=== PATIENT | female | born 1985 | race Caucasian/White ===

== ENCOUNTER 2018-11-13 11:10 | Inpatient (IN) | payer OTHER ==
[~2018-11-13] VITALS: Ht 158 cm; Wt 68.0 kg
[2018-11-13 12:37] LABS: BASOPHILS % (AUTO) 0.3 % (0.0-2.0); EOSINOPHILS % (AUTO) 0.4 % (1.0-6.0); HEMATOCRIT 35.4 % (36-46); LYMPHOCYTES # (AUTO) 2.1 K/uL (1.0-4.8); LYMPHOCYTES % (AUTO) 22.1 % (22.0-44.0); MEAN CORPUSCULAR HEMOGLOBIN 29.9 pg (26.0-34.0); MEAN CORPUSCULAR HGB CONC 33.8 G/dL (31.0-37.0); MEAN CORPUSCULAR VOLUME 88 fL (80-100); MONOCYTES # (AUTO) 0.7 K/uL (0.1-1.0); NEUTROPHILS # (AUTO) 6.5 K/uL (1.8-7.7); NEUTROPHILS % (AUTO) 70.2 % (40.0-70.0); PLATELET COUNT (AUTO)-OB 196 K/uL (150-450); RED BLOOD CELL COUNT(AUTO) 4.01 MIL/uL (4.00-5.20); RED CELL DISTRIBUTION WIDTH 15.4 % (11.5-14.5)
[2018-11-13 12:47] LABS: ANION GAP 12 mmol/L (8-16); CALCIUM, TOTAL 8.5 mg/dL (8.8-10.5); CARBON DIOXIDE 19 mmol/L (22-29); CHLORIDE 106 mmol/L (98-107); GLOMERULAR FILTR. RATE CALC > 60 mL/min (>60); GLUCOSE,RANDOM 74 mg/dL (70-110); POTASSIUM 4.5 mmol/L (3.5-5.1); SODIUM SERUM 137 mmol/L (136-145); UREA NITROGEN, BLOOD 16 mg/dL (7-18)
[2018-11-13 12:50] LABS: ALANINE AMINOTRANSFERASE 37 U/L (12-78); ALBUMIN 2.1 g/dL (3.4-5.0); ALKALINE PHOSPHATASE 290 U/L (46-116); ASPARTATE AMINOTRANSFERASE 26 U/L (15-37); BILIRUBIN,TOTAL 0.2 mg/dL (0.1-1.0)
[2018-11-13] MEDS ORDERED: RINGERS SOLUTION,LACTATED 1,000 ML IV PRN (13:47)
[2018-11-13] MEDS ORDERED: METHYLERGONOVINE MALEATE 0.2 MG/ML VIAL IM PRN (14:00)
[2018-11-13] MEDS ORDERED: CITRIC ACID/SODIUM CITRATE 30 ML SOLUTION UDCUP PO PRN (14:00)
[2018-11-13] MEDS ORDERED: LIDOCAINE/PF 1% 30 ML VIAL INJ PRN (14:00)
[2018-11-13] MEDS ORDERED: METOCLOPRAMIDE HCL 5 MG/ML 2 ML VIAL IVP PRN (14:00)
[2018-11-13] MEDS ORDERED: CARBOPROST TROMETHAMINE 250 MCG/ML AMP IM PRN (14:00)
[2018-11-13 15:27] LABS: APPEARANCE,URINE CLEAR (CLEAR); BILIRUBIN,URINE NEGATIVE (NEGATIVE); GLUCOSE, URINE (UA) NEGATIVE (NEGATIVE); KETONES,URINE NEGATIVE (NEGATIVE); LEUKOCYTE ESTERASE ,URINE NEGATIVE (NEGATIVE); NITRATE,URINE NEGATIVE (NEGATIVE); OCCULT BLOOD,URINE NEGATIVE (NEGATIVE); PH,URINE 5.5 (5.0-8.0); PROTEIN,URINE SEE CONFIRM (NEGATIVE); UROBILINOGEN,URINE 0.2 mg/dL (<=1.0)
[2018-11-13 15:57] LABS: SULFOSALICYLIC ACID,URINE 4+ (Negative)
[2018-11-13 15:58] LABS: BACTERIA,URINE Moderate /HPF (None Seen); RBC,URINE None Seen /HPF (0-2)
[2018-11-13 16:01] LABS: COARSE GRANULAR CASTS,URINE 0-2 /LPF (None Seen); MUCUS,URINE Few LPF (None Seen); SQUAMOUS EPITHELIAL CELL,UR Few /LPF (None Seen)
[2018-11-13] MEDS: MISOPROSTOL 25 MCG TABLET PO SCH ×2 (17:06→21:15)
[2018-11-13] MEDS ORDERED: NIFE10CA PO (17:49)
[2018-11-13] MEDS ORDERED: PREN1TAB80 PO (17:50)
[2018-11-13 17:53] VITALS: BP 135/85
[2018-11-13] MEDS ORDERED: BETAMETHASONE SOLUSPAN 6 MG/ML 5 ML VIAL IM ONE (18:00)
[2018-11-13] MEDS ORDERED: OXYGEN THERAPY IH SCH (20:00)
[2018-11-13] MEDS ORDERED: OXYTOCIN 30 UNITS/LACT RINGERS 500 ML IV PRN (21:50)
[2018-11-13] MEDS: RINGERS SOLUTION,LACTATED 1,000 ML IV SCH (23:39)
[2018-11-14] MEDS: MISOPROSTOL 25 MCG TABLET PO SCH ×2 (01:09→04:58)
[2018-11-14] MEDS ORDERED: BETAMETHASONE SOLUSPAN 6 MG/ML 5 ML VIAL IM ONE (07:25)
[2018-11-14] MEDS: RINGERS SOLUTION,LACTATED 1,000 ML IV SCH (07:32)
[2018-11-14] MEDS ORDERED: ACETAMINOPHEN 1000 MG/ISO-OSM 100 ML IV ONE (09:51)
[2018-11-14] MEDS ORDERED: BUPIVACAINE HCL/DEX-WATER/PF 0.75% 2 ML AMP ONE (09:55)
[2018-11-14] MEDS ORDERED: DiphenhydrAMINE HCL 50 MG/ML VIAL IVP PRN (11:00)
[2018-11-14] MEDS ORDERED: FentaNYL CITRATE-PF 100 MCG/2 ML VIAL IVP PRN ×2 (11:00)
[2018-11-14] MEDS ORDERED: NALOXONE HCL 0.4 MG/ML VIAL IVP PRN (11:00)
[2018-11-14] MEDS ORDERED: MEPERIDINE-PF 25 MG/ML VIAL IVP PRN (11:00)
[2018-11-14] MEDS ORDERED: HYDROmorphone 2 MG/ML SYRINGE IVP PRN ×2 (11:00)
[2018-11-14] MEDS ORDERED: ONDANSETRON HCL 4 MG/2 ML VIAL IVP PRN (11:00)
[2018-11-14] MEDS ORDERED: RINGERS SOLUTION,LACTATED 1,000 ML IV ONE (11:05)
[2018-11-14] MEDS ORDERED: METHYLERGONOVINE MALEATE 0.2 MG/ML VIAL ONE (11:05)
[2018-11-14] MEDS ORDERED: NIFE30TA5 PO (11:07)
[2018-11-14] MEDS ORDERED: ACETAMINOPHEN/CODEINE 300-30 MG TABLET PO PRN ×2 (11:30)
[2018-11-14] MEDS ORDERED: LANOLIN 7 GM OINTMENT TP PRN (11:30)
[2018-11-14] MEDS ORDERED: PHENYLEPHRINE HCL 10 MG/ML VIAL IVP ONE (12:00)
[2018-11-14] MEDS ORDERED: ONDANSETRON HCL 4 MG/2 ML VIAL IVP ONE (12:00)
[2018-11-14] MEDS ORDERED: MORPHINE SULFATE/PF 0.5 MG/ML 10 ML AMP IVP ONE (12:00)
[2018-11-14] MEDS ORDERED: FentaNYL CITRATE-PF 100 MCG/2 ML VIAL IVP ONE (12:00)
[2018-11-14] MEDS ORDERED: OXYTOCIN 10 UNITS/ML VIAL IM ONE (12:00)
[2018-11-14] MEDS ORDERED: 0.9% SODIUM CHLORIDE 10 ML VIAL IVP ONE (12:00)
[2018-11-14] MEDS ORDERED: EPHEDrine SULFATE 50 MG/ML VIAL IM ONE (12:00)
[2018-11-14] MEDS: ACETAMINOPHEN 500 MG TABLET PO SCH (17:26)
[2018-11-14] MEDS: DEXTROSE 5%-0.45% SODIUM CHL 1,000 ML IV SCH ×3 (17:35→21:36)
[2018-11-15] MEDS: ACETAMINOPHEN 500 MG TABLET PO SCH (01:26)
[2018-11-15] MEDS: IBUPROFEN 800 MG TABLET PO SCH ×3 (05:25→17:44)
[2018-11-15] MEDS: DEXTROSE 5%-0.45% SODIUM CHL 1,000 ML IV SCH (06:52)
[2018-11-15] MEDS: MAGNESIUM HYDROXIDE SUSPENSION 30 ML UDCUP PO SCH ×2 (08:29→20:43)
[2018-11-15] MEDS: OxyCODONE HCL/ACETAMINOPHEN 10-325 MG TABLET PO PRN (18:28)
[2018-11-16] MEDS: IBUPROFEN 800 MG TABLET PO SCH ×4 (00:10→18:24)
[2018-11-16] MEDS: MAGNESIUM HYDROXIDE SUSPENSION 30 ML UDCUP PO SCH (08:28)
[2018-11-16] MEDS: OxyCODONE HCL/ACETAMINOPHEN 10-325 MG TABLET PO PRN (08:29)
[2018-11-16] MEDS ORDERED: METHYLDOPA 250 MG TABLET PO ONE ×2 (08:45→11:15)
[2018-11-17] MEDS: IBUPROFEN 800 MG TABLET PO SCH ×2 (00:15→06:33)
[2018-11-17] MEDS: METHYLDOPA 250 MG TABLET PO SCH ×2 (04:36→10:19)
[2018-11-17] MEDS ORDERED: METHY500 PO (09:44)
[2018-11-17] MEDS ORDERED: IBUP-2071 PO (09:45)
== END 2018-11-17 14:15 | disposition home or self-care (01) | DRG 788 ==
LOC: 4S 11:10 → OBSVTOIN 11:10 → 4S 11-14 13:06
PROVIDERS: ADMIT Obstetrics & Gynecology; ATTEND Obstetrics & Gynecology
PROC: 3E033VJ Introduction of Other Hormone into Peripheral Vein, Percutaneous Approach (ICD-10-PCS; 2018-11-13)
PROC: 10D00Z1 Extraction of Products of Conception, Low, Open Approach (ICD-10-PCS; principal; 2018-11-14)
DX: O14.14 Severe pre-eclampsia complicating childbirth (principal); O60.14X0 Preterm labor third trimester with preterm delivery third trimester, not applicable or unspecified; O61.9 Failed induction of labor, unspecified; Z3A.36 36 weeks gestation of pregnancy; Z37.0 Single live birth
CPT/HCPCS: 83036; 84550; 86850; 86900; 86901; 87081; 87086; J0131; J0690; J0702; J2210; J2274; J2370; J2405; J2590; J2765; J3010; J3490; J7120